=== PATIENT | male | born 1955 | race Caucasian/White ===

== ENCOUNTER → 2017-12-04 | Outpatient (CLI) | payer MEDICARE ==
[~2017-12-04] MED LIST: ASPIRIN 81M81 MG/TA2; ASPIRIN E.C. 8181 MG PO; CELEXA 20MG20 MG/TAB; FISH OIL1000 MG PO; LOPRESSOR 550 MG/TAB; NO HOME MEDICATIONS; TAMBOCOR 1100 MG/TAB; VITAMIN D1000 IU PO; XARELTO10 MG
[2017-12-04 09:14] LABS: COLLECTION METHOD CLEAN CATCH
[2017-12-04 09:18] LABS: BASO % 0.5 % (0.0-2.0); EOS # 0.2 (0.0-0.7); EOS % 2.5 % (0-4.0); GRAN # 6.4 (1.4-6.5); GRAN % 71.4 % (42.2-75.2); HEMATOCRIT 47.3 % (42.0-52.0); HEMOGLOBIN 16.1 g/dl (13.5-18.0); LYMPH # 1.6 (1.2-3.4); LYMPH % 17.6 % (20.0-51.0); MEAN CELL VOLUME 90 fl (80.0-100.0); MEAN CORPUSCULAR HEMOGLOBIN 31 pg (27.0-31.0); MEAN CORPUSCULAR HGB CONC 34 g/dl (33.0-37.0); MONO # 0.7 (0.1-0.6); MONO % 7.8 % (1.7-9.3); PLATELET COUNT 281 K/mm3 (130-400); RED BLOOD COUNT 5.28 M/mm3 (4.20-5.60); REDCELL DISTRIBUTION WIDTH-CV 12.5 % (11.5-14.5)
[2017-12-04 09:20] LABS: MUCOUS Present /lpf; PH 5 (5-8); SQUAMOUS EPITHELIAL None Seen /hpf; URINE APPEARANCE Clear; URINE BACTERIA None Seen /hpf; URINE BILIRUBIN Negative (NEGATIVE); URINE BLOOD Negative (NEGATIVE); URINE COLOR Yellow; URINE GLUCOSE 1+ (NEGATIVE); URINE KETONE Negative (NEGATIVE); URINE LEUKOCYTE ESTERASE Negative (NEGATIVE); URINE NITRATE Negative (NEGATIVE); URINE PROTEIN(semi-quant) Negative (NEGATIVE); URINE RBC 0-2 /hpf; URINE UROBILINOGEN Negative (NEGATIVE); URINE WBC 0-2 /hpf
[2017-12-04 09:37] LABS: ALBUMIN 4.5 gm/dL (3.5-5.0); BILIRUBIN,TOTAL 0.3 mg/dL (0.0-1.0); CALCIUM 9.2 mg/dL (8.4-10.2); CHOLESTEROL RISK RATIO 3.8; CREATININE, serum 0.77 mg/dL (0.66-1.25); POTASSIUM 4.2 mmol/L (3.4-5.0); TOTAL PROTEIN 7.7 gm/dL (6.4-8.2)
[2017-12-04 10:07] LABS: TSH w REFLEX 0.671 uIU/mL (0.465-4.680)
[2017-12-05] LABS: URINE MICROALBUMIN 3.3 mg/dL (0.0-1.7)
== END ==
LOC: COL.LAB 08:22
PROVIDERS: Registered Nurse
DX: R06.02 Shortness of breath (principal); I10 Essential (primary) hypertension

== ENCOUNTER → 2017-12-18 | Outpatient (CLI) | payer MEDICARE | LOC: COL.LAB 08:40 | DX: R73.9 Hyperglycemia, unspecified (principal) ==

== ENCOUNTER → 2017-12-22 | Outpatient (CLI) | payer MEDICARE | LOC: COL.PUL 07:52 | DX: R06.02 Shortness of breath (principal); F17.210 Nicotine dependence, cigarettes, uncomplicated ==

== ENCOUNTER 2018-01-22 10:16 | Emergency (ER) | payer MEDICARE ==
[~2018-01-22] VITALS: Ht 172.7 cm; Wt 71.4 kg
[2018-01-22 10:24] VITALS: TEMP 98.5
[2018-01-22] MEDS ORDERED: NORVASC 10MG10 MG PO (10:30)
[2018-01-22 12:20] LABS: BASO # 0.1 (0.0-0.2); BASO % 0.6 % (0.0-2.0); EOS # 0.1 (0.0-0.7); EOS % 0.6 % (0-4.0); GRAN # 7.4 (1.4-6.5); GRAN % 75.9 % (42.2-75.2); HEMATOCRIT 45.4 % (42.0-52.0); HEMOGLOBIN 15.9 g/dl (13.5-18.0); LYMPH # 1.5 (1.2-3.4); LYMPH % 14.9 % (20.0-51.0); MEAN CELL VOLUME 88 fl (80.0-100.0); MEAN CORPUSCULAR HEMOGLOBIN 31 pg (27.0-31.0); MEAN CORPUSCULAR HGB CONC 35 g/dl (33.0-37.0); MEAN PLATELET VOLUME 10.4 fl (7.4-10.4); MONO # 0.8 (0.1-0.6); MONO % 7.8 % (1.7-9.3); PLATELET COUNT 261 K/mm3 (130-400); RED BLOOD COUNT 5.19 M/mm3 (4.20-5.60); REDCELL DISTRIBUTION WIDTH-CV 12.4 % (11.5-14.5)
[2018-01-22 12:38] LABS: ALBUMIN 4.5 gm/dL (3.5-5.0); BILIRUBIN,TOTAL 0.8 mg/dL (0.0-1.0); C-REACTIVE PROTEIN 6.6 mg/dL (0.0-0.9); CALCIUM 9.3 mg/dL (8.4-10.2); CREATININE, serum 0.83 mg/dL (0.66-1.25); POTASSIUM 3.9 mmol/L (3.4-5.0); TOTAL PROTEIN 8.1 gm/dL (6.4-8.2)
[2018-01-22 12:47] LABS: COLLECTION METHOD CLEAN CATCH
[2018-01-22 12:55] LABS: MUCOUS Present /lpf; PH 5 (5-8); SQUAMOUS EPITHELIAL None Seen /hpf; URINE APPEARANCE Hazy; URINE BACTERIA None Seen /hpf; URINE BILIRUBIN Negative (NEGATIVE); URINE BLOOD 1+ (NEGATIVE); URINE COLOR Yellow; URINE GLUCOSE Negative (NEGATIVE); URINE KETONE 1+ (NEGATIVE); URINE LEUKOCYTE ESTERASE Negative (NEGATIVE); URINE NITRATE Negative (NEGATIVE); URINE PROTEIN(semi-quant) 1+ (NEGATIVE); URINE RBC 0-2 /hpf; URINE UROBILINOGEN Negative (NEGATIVE)
[2018-01-22] MEDS ORDERED: FLAGYL500 MG PO (14:08)
[2018-01-22] MEDS ORDERED: NORCO 325 MG-51 TAB PO (14:08)
[2018-01-22] MEDS ORDERED: LEVAQUIN 750MG750 M1 PO (14:08)
[2018-01-22] MEDS ORDERED: ZOFRAN ODT4 MG PO (14:08)
[2018-01-22] MEDS ORDERED: PERCOCET 325 MG1 TA2 PO (14:20)
[2018-01-22 14:21] VITALS: BP 152/78; PULSE 76
== END 2018-01-22 14:37 | disposition home or self-care (01) ==
LOC: COL.ER 10:16
PROVIDERS: Physician Assistant
DX: K57.32 Diverticulitis of large intestine without perforation or abscess without bleeding (principal); I10 Essential (primary) hypertension; F17.210 Nicotine dependence, cigarettes, uncomplicated; Z87.442 Personal history of urinary calculi; Z98.890 Other specified postprocedural states; Z79.82 Long term (current) use of aspirin
CPT/HCPCS: J2270; J2405; J7030; Q9967

== ENCOUNTER → 2018-02-06 | Outpatient (CLI) | payer MEDICARE ==
[~2018-02-06] MED LIST changes: +FLAGYL500 MG PO; +LEVAQUIN 750MG750 M1 PO; +NORCO 325 MG-51 TAB PO; +NORVASC 10MG10 MG PO; +PERCOCET 325 MG1 TA2 PO; +ZOFRAN ODT4 MG PO
== END ==
LOC: COL.RAD 10:28
DX: M16.0 Bilateral primary osteoarthritis of hip (principal); G89.29 Other chronic pain

== ENCOUNTER 2018-04-05 11:23 | Emergency (ER) | payer MEDICARE ==
[~2018-04-05] VITALS: Ht 172.7 cm; Wt 70.5 kg
[2018-04-05 11:29] VITALS: BP 168/85; TEMP 97
[2018-04-05] MEDS ORDERED: CELEBREX 200MG200 MG PO (11:40)
[2018-04-05] MEDS ORDERED: PERCOCET 325 MG1 TA2 PO (12:07)
[2018-04-05] MEDS ORDERED: PEN-VEE K500 MG PO (12:07)
[2018-04-05 12:33] VITALS: PULSE 88
== END 2018-04-05 12:34 | disposition home or self-care (01) ==
LOC: COL.ER 11:23
DX: K02.9 Dental caries, unspecified (principal); K04.7 Periapical abscess without sinus; I10 Essential (primary) hypertension; F17.210 Nicotine dependence, cigarettes, uncomplicated; Z79.82 Long term (current) use of aspirin

== ENCOUNTER 2018-05-21 09:35 | Emergency (ER) | payer MEDICARE ==
[~2018-05-21] VITALS: Ht 172.7 cm; Wt 67.0 kg
[~2018-05-21 09:35] MED LIST changes: +CELEBREX 200MG200 MG PO; +PEN-VEE K500 MG PO
[2018-05-21 09:39] VITALS: BP 134/76; TEMP 98.4
[2018-05-21] MEDS ORDERED: PEN-VEE K500 MG PO (10:17)
[2018-05-21] MEDS ORDERED: PERCOCET 325 MG1 TA2 PO (10:17)
[2018-05-21 10:33] VITALS: PULSE 79
== END 2018-05-21 10:33 | disposition home or self-care (01) ==
LOC: COL.ER 09:35
DX: K02.9 Dental caries, unspecified (principal); J44.9 Chronic obstructive pulmonary disease, unspecified; N40.0 Benign prostatic hyperplasia without lower urinary tract symptoms; F17.210 Nicotine dependence, cigarettes, uncomplicated; I10 Essential (primary) hypertension; Z87.442 Personal history of urinary calculi; Z79.82 Long term (current) use of aspirin

== ENCOUNTER → 2019-04-16 | Outpatient (CLI) | payer MEDICARE | LOC: COL.VAS 13:09 | DX: Z12.2 Encounter for screening for malignant neoplasm of respiratory organs (principal); I10 Essential (primary) hypertension; F17.210 Nicotine dependence, cigarettes, uncomplicated; R09.89 Other specified symptoms and signs involving the circulatory and respiratory systems; I74.3 Embolism and thrombosis of arteries of the lower extremities; R91.8 Other nonspecific abnormal finding of lung field ==

== ENCOUNTER → 2019-06-05 | Outpatient (CLI) | payer MEDICARE | LOC: COL.RAD 10:18 | DX: M54.2 Cervicalgia (principal); F17.210 Nicotine dependence, cigarettes, uncomplicated ==

== ENCOUNTER → 2019-06-07 | Outpatient (CLI) | payer MEDICARE ==
[2019-06-07 11:53] LABS: HEMATOCRIT 48.3 % (42.0-52.0); HEMOGLOBIN 16.7 g/dl (13.5-18.0); MEAN CELL VOLUME 87 fl (80.0-100.0); MEAN CORPUSCULAR HEMOGLOBIN 30 pg (27.0-31.0); MEAN CORPUSCULAR HGB CONC 35 g/dl (33.0-37.0); MEAN PLATELET VOLUME 10.1 fl (7.4-10.4); PLATELET COUNT 298 K/mm3 (130-400); RED BLOOD COUNT 5.57 M/mm3 (4.20-5.60); REDCELL DISTRIBUTION WIDTH-CV 12.8 % (11.5-14.5)
[2019-06-07 12:11] LABS: ALBUMIN 4.2 gm/dL (3.5-5.0); BILIRUBIN,TOTAL 0.9 mg/dL (0.0-1.0); CALCIUM 9.4 mg/dL (8.4-10.2); CREATININE, serum 0.99 (0.66-1.25); TOTAL PROTEIN 7.7 gm/dL (6.4-8.2)
== END ==
LOC: COL.LAB 11:10
PROVIDERS: Internal Medicine Interventional Cardiology
DX: I70.213 Atherosclerosis of native arteries of extremities with intermittent claudication, bilateral legs (principal)

== ENCOUNTER 2019-08-22 08:24 | Emergency (ER) | payer MEDICARE ==
[~2019-08-22] VITALS: Ht 172.7 cm; Wt 72.7 kg
[2019-08-22 08:32] VITALS: BP 168/77; TEMP 98.6
[2019-08-22] MEDS ORDERED: PLAVIX 75MG TAB75 MG PO (08:44)
[2019-08-22] MEDS ORDERED: PERCOCET 325 MG1 TA2 PO (08:49)
[2019-08-22] MEDS ORDERED: AMOXICILLIN 50500 MG PO (08:49)
[2019-08-22 09:19] VITALS: PULSE 71
== END 2019-08-22 09:20 | disposition home or self-care (01) ==
LOC: COL.ER 08:24
DX: K02.9 Dental caries, unspecified (principal); I10 Essential (primary) hypertension; Z87.891 Personal history of nicotine dependence; Z79.82 Long term (current) use of aspirin; Z79.02 Long term (current) use of antithrombotics/antiplatelets

== ENCOUNTER → 2020-09-03 | Outpatient (CLI) | payer MEDICARE ==
[~2020-09-03] MED LIST changes: +AMOXICILLIN 50500 MG PO; +PLAVIX 75MG TAB75 MG PO
[2020-09-03 11:12] LABS: ANION GAP 9 mmol/L (7-16); BLOOD UREA NITROGEN 18 mg/dL (9-20); CALCIUM 9.4 mg/dL (8.4-10.2); CARBON DIOXIDE 25 mmol/L (22-30); CHLORIDE 105 mmol/L (98-107); CREATININE, serum 0.91 (0.66-1.25); GLUCOSE 115 mg/dL (74-106); POTASSIUM 4.8 mmol/L (3.4-5.0); SODIUM 139 mmol/L (137-145)
[2020-09-03 11:14] LABS: C-REACTIVE PROTEIN < 0.5 mg/dL (0.0-0.9)
[2020-09-05 16:15] LABS: ANGIOTENSIN CONVERTING ENZYME 15 U/L (16 - 85)
== END ==
LOC: COL.LAB 10:23
PROVIDERS: Internal Medicine Pulmonary Disease
DX: R93.89 Abnormal findings on diagnostic imaging of other specified body structures (principal)

== ENCOUNTER → 2020-09-03 | Outpatient (CLI) | payer MEDICARE | LOC: COL.LAB 09:59 | DX: R93.89 Abnormal findings on diagnostic imaging of other specified body structures (principal) ==

== ENCOUNTER 2020-09-16 08:12 | Outpatient (RCR) | payer MEDICARE | END 2020-11-30 | disposition home or self-care (01) | LOC: WSST | DX: R13.10 Dysphagia, unspecified (principal); Z87.891 Personal history of nicotine dependence; J44.9 Chronic obstructive pulmonary disease, unspecified ==

== ENCOUNTER → 2020-09-21 | Outpatient (CLI) | payer MEDICARE | LOC: COL.RAD 07:54 | DX: R13.10 Dysphagia, unspecified (principal) ==

== ENCOUNTER → 2021-09-21 | Outpatient (CLI) | payer MEDICARE ==
[~2021-09-21] MED LIST changes: +CRESTOR20 MG PO; +PRINIVIL10 MG PO; +PROAIR HFA0.09 MG/AC IH; +TRELEGY ELLIPT1 EACH IH
== END ==
LOC: COL.VAS 14:12
DX: J44.9 Chronic obstructive pulmonary disease, unspecified (principal)

== ENCOUNTER → 2021-10-06 | Outpatient (CLI) | payer MEDICARE | LOC: COL.RAD 12:58 | DX: Z12.2 Encounter for screening for malignant neoplasm of respiratory organs (principal); J43.9 Emphysema, unspecified; Z87.891 Personal history of nicotine dependence ==

== ENCOUNTER 2021-10-27 06:52 | Outpatient (CLI) | payer MEDICARE ==
[2021-10-27] VITALS (19 sets, daily range): BP systolic 112–151; BP diastolic 69–88; PULSE 52–68; TEMP 98
[~2021-10-27] VITALS: Ht 172.7 cm; Wt 76.3 kg
--- NOTE | 2021-10-27 12:00 | NUR ---
Discharge instructions given to pt.Pt verbalizes understanding.INT removed,catheter tip intact.Dr. Cornejo in to see pt.Pt escorted out via wheelchair by this nurse.
== END 2021-10-27 13:21 ==
LOC: COL.RAD 06:52
DX: J93.9 Pneumothorax, unspecified (principal); R91.8 Other nonspecific abnormal finding of lung field
CPT/HCPCS: 32107

== ENCOUNTER 2021-12-14 10:53 | Day surgery (SDC) | payer MEDICARE ==
[~2021-12-14] VITALS: Ht 172.7 cm; Wt 73.6 kg
[2021-12-14 11:38] VITALS: BP 140/63; PULSE 75; TEMP 97.7
[2021-12-14 13:20] VITALS: BP 126/65; PULSE 55; TEMP 97.5
--- NOTE | 2021-12-14 13:20 | NUR ---
The patient arrived back to [place] [facility] from the operating room at this time. The patient appears alert and oriented and denies any pain or nausea at this time. Post operative vital signs were started at this time. The patient's dressing to his neck and right upper chest appear clean, dry and intact. The patient's is at his bedside. Call light is within reach. The patient requests to try some orange juice. Will continue to monitor the patient.
[2021-12-14 13:35] VITALS: BP 114/70; PULSE 53
--- NOTE | 2021-12-14 13:35 | NUR ---
The patient appears to be tolerating the juice well. Vital signs appear stable. The patient requests to ambulate to the bathroom and did some with the stand by assistance of one nurse and appeared to tolerate the activity well. The patient voided without difficulty and voices a desire to be discharge home.
[2021-12-14 13:50] VITALS: BP 123/71; PULSE 55
--- NOTE | 2021-12-14 13:50 | NUR ---
Discharge instructions were reviewed with the patient and his at this time. They both verbalized understanding and have no questions for the nurse at this time. The patient's IV to his right forearm was removed and a pressure dressing was applied to the site. The patient is dressed and ready to be escorted out.
--- NOTE | 2021-12-14 14:00 | NUR ---
The patient was escorted out via wheelchair to a private vehicle by DEANDRA Vásquez. The patient's belongings and discharge paperwork were sent with him. The patient's son is present to drive him home.
== END 2021-12-14 14:00 | disposition home or self-care (01) ==
LOC: SDCO 10:53
DX: C34.32 Malignant neoplasm of lower lobe, left bronchus or lung (principal); I10 Essential (primary) hypertension; J44.9 Chronic obstructive pulmonary disease, unspecified; I73.9 Peripheral vascular disease, unspecified; E78.5 Hyperlipidemia, unspecified; R06.02 Shortness of breath; M19.90 Unspecified osteoarthritis, unspecified site; Z79.891 Long term (current) use of opiate analgesic; Z79.82 Long term (current) use of aspirin; Z79.899 Other long term (current) drug therapy; Z79.02 Long term (current) use of antithrombotics/antiplatelets; Z87.891 Personal history of nicotine dependence; Z86.718 Personal history of other venous thrombosis and embolism; Z99.81 Dependence on supplemental oxygen
CPT/HCPCS: C1788; J0690; J1644; J2250; J2704; J7120

== ENCOUNTER 2021-12-24 18:38 | Inpatient (IN) | payer MEDICARE ==
[~2021-12-24] VITALS: Ht 172.7 cm; Wt 150.4 kg
[2021-12-24 19:41] LABS: HEMATOCRIT 37.5 % (42.0-52.0); HEMOGLOBIN 12.3 g/dl (13.5-18.0); MEAN CELL VOLUME 85 fl (80.0-100.0); MEAN CORPUSCULAR HEMOGLOBIN 28 pg (27-31); MEAN CORPUSCULAR HGB CONC 33 g/dl (33.0-37.0); MEAN PLATELET VOLUME 9.4 fl (7.4-10.4); PLATELET COUNT 431 K/mm3 (130-400); RED BLOOD COUNT 4.43 M/mm3 (4.20-5.60); REDCELL DISTRIBUTION WIDTH-CV 13.2 % (11.5-14.5)
[2021-12-24 19:56] LABS: ALBUMIN 2.8 gm/dL (3.4-4.8); BILIRUBIN,TOTAL 0.4 mg/dL (0.2-1.2); CALCIUM 9.2 mg/dL (8.4-10.2); CREATININE, serum 1.52 mg/dL (0.72-1.25); POTASSIUM 4.3 mmol/L (3.5-4.5); TOTAL PROTEIN 8.2 gm/dL (6.2-8.1)
[2021-12-24 20:02] LABS: BAND 5 % (0-10); LYMPHOCYTE 2 % (20.0-51.0); NEUTROPHILS 88 % (42.0-75.2)
[2021-12-24 21:43] LABS: COLLECTION METHOD CLEAN CATCH
[2021-12-24 21:51] LABS: MUCOUS Present (NOT PRESENT); PH 5 (5-8); SQUAMOUS EPITHELIAL 0-2 /hpf (0-10); URINE APPEARANCE Cloudy (CLEAR/HAZY); URINE BACTERIA None Seen /hpf (NONE SEEN); URINE BILIRUBIN Negative (NEGATIVE); URINE BLOOD 1+ (NEGATIVE); URINE COLOR Amber (YELLOW); URINE GLUCOSE Negative (NEGATIVE); URINE KETONE Negative (NEGATIVE); URINE LEUKOCYTE ESTERASE Negative (NEGATIVE); URINE NITRATE Negative (NEGATIVE); URINE PROTEIN(semi-quant) 2+ (NEGATIVE); URINE UROBILINOGEN Negative (NEGATIVE)
[2021-12-24] MEDS ORDERED: VALIUM 5MG T5 MG/TAB PO (21:51)
[2021-12-24] MEDS ORDERED: PERCOCET 325 MG1 TA2 PO (21:51)
[2021-12-24] MEDS ORDERED: FLOMAX 0.40.4 MG/CAP PO (21:52)
[2021-12-24] MEDS ORDERED: TRELEGY ELLIPT1 EACH IH (21:52)
[2021-12-24] MEDS ORDERED: PLAVIX 75MG TAB75 MG PO (21:52)
[2021-12-24] MEDS ORDERED: CRESTOR20 MG PO (21:53)
[2021-12-24] MEDS ORDERED: NORVASC 10MG10 MG PO (21:53)
[2021-12-24] MEDS ORDERED: ASPIRIN 81M81 MG/TA2 PO (21:53)
[2021-12-24] MEDS ORDERED: PROAIR HFA0.09 MG/AC IH (21:53)
[2021-12-24] MEDS ORDERED: PRINIVIL10 MG PO (21:54)
[2021-12-24 23:13] VITALS: BP 127/57; PULSE 92; TEMP 100
--- NOTE | 2021-12-25 01:11 | NUR ---
PATIENT UP TO FLOOR. ALERT AND ORIENTED. MED RX COMPLETED. ASSESSMENTS COMPLETED. IV TO L AC PATENT WITH IVF INFUSING AND INTERMITTENT ABX. PORT TO R CHEST. C/O GENERALIZED BODY ACHES AND PRN PERCOCET GIVEN. 2 L O2 INFUSING VIA NC. RESPIRATORY PANEL COMPLETED AND SENT TO LAB. PATIENT RESTING IN BED NOW AND REQUESTS TO NOT BE BOTHERED VERY MUCH. CALLED AND WAS UPDATED. NAME AND NUMBER IS IN CHART.
[2021-12-25 04:17] VITALS: BP 100/50; PULSE 66; TEMP 98
[2021-12-25 05:41] LABS: HEMOGLOBIN 11.4 g/dl (13.5-18.0); MEAN CELL VOLUME 85 fl (80.0-100.0); MEAN CORPUSCULAR HEMOGLOBIN 29 pg (27-31); MEAN CORPUSCULAR HGB CONC 34 g/dl (33.0-37.0); MEAN PLATELET VOLUME 9.5 fl (7.4-10.4); PLATELET COUNT 361 K/mm3 (130-400); RED BLOOD COUNT 3.98 M/mm3 (4.20-5.60); REDCELL DISTRIBUTION WIDTH-CV 13.3 % (11.5-14.5)
[2021-12-25 05:57] LABS: BAND 7 % (0-10); HYPOCHROMIA 3+; LYMPHOCYTE 2 % (20.0-51.0); NEUTROPHILS 88 % (42.0-75.2); PLATELET ESTIMATE NORMAL (NORMAL)
--- NOTE | 2021-12-25 06:10 | NUR ---
66 yo male admitted for further care and management of sepsis likely secondary to possible pneumonia. ht 68 inches wt 71 kg SCr 1.52 with estimated CrCl ~40 ml/min half life 18.7 hours Plan: Will give an initial loading dose of vancomycin 1500 mg x1 (21.1 mg/kg); followed by a maintenance regimen of vancomycin 1000 mg q18h to target a goal trough of 15-20 mcg/ml. Will follow patient's renal function, micro data, and vancomycin levels as indicated to assess for any necessary changes to regimen. Thank you for this dosing consult.
[2021-12-25 07:19] VITALS: BP 100/61; PULSE 63; TEMP 97.7
--- NOTE | 2021-12-25 07:30 | NUR ---
CALLED UP ASKING ABOUT PATIENT'S NIGHT, PATIENT STATUS UPDATE GIVEN. EXPRESSED SOME CONCERN REGUARDING THE VISITOR POLICY THE PATIENT HAS A BROTHER AND BEST FRIEND SINCE [place]. NURSING EDUCATED ABOUT COVID AND THE IMPORTANCE OF THE VISITOR POLICY. THEN ALSO EXPRESSED CONCERN ABOUT PHONE CALLS. SHE WENT ON TO SAY THEY CAN ONLY AFFORD ONE CELL PHONE AND SHE HAS IT. APPARENTLY THE PATIENT'S BROTHER TRIED TO CALL IN THE EARLY HOURS OF THE MORNING ON RN CHILD AND HAD DIFFICULTY GETTING TRANSFERED TO THE CORRECT ROOM THE PATIENT HAS MOVED FROM ICU TO SURGICAL. ONCE TRANSFERED, RN CHILD PATIENT WAS SO TIRED AND SLEPT SOUNDLY ALL NIGHT. PATIENT DID NOT HEAR THE PHONE RING. BECAME INCREASINGLY UPSET SHE TOLD THIS STORY AND SAID "HE IS DYING, HE HAS THE RIGHT TO PHONE CALLS, DOES HE NOT?!" BEFORE NURSING COULD ANSWER THE STARTING RAISING HER VOICE AND BLAMING NURSING. I WAS ABLE TO CALM HER DOWN AND REMIND HER NURSING HAS NO CONTROL OVER THE VISITOR POLICY AND EXPRESSED THE IMPORTANCE OF SLEEP HOWEVER, WE COMPLETLY SUPPORT ANY AND ALL COMMUNICATION THAT THE PATIENT WANTS TO HAVE DURING HIS STAY. WAS GIVEN THE DIRECT PHONE NUMBER TO THE PATIENT'S ROOM. NURSING MADE SURE THE PHONE WAS WITHIN REACH. THEN APPOLOGIZED AND THANKED NURSING FOR ALL WE DO. 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 REPORTS SHE WILL BE IN LATER TODAY.
--- NOTE | 2021-12-25 08:00 | NUR ---
PATIENT IS DROWSY, ORIENTED X4 AND FOUND TO BE VERY DIAPHORTIC IN HIS SLEEP. AFEBRILE. VSS ON TELE. RIGHT CHEST PORT TEGADERM COMING OFF DUE TO SWEAT, REPLACED DRESSING AND FLUSHED. IV FLUIDS INFUSING INTO LEFT AC IV. NO C/O PAIN OR NAUSEA. NOTED ELEVATED WBC OF 26.4, BC PENDING. PATIENT IS ON IV SOLU-MEDROL WELL VANCO & ZOSYN. NOTED OCCATIONAL DRY COUGH, NON-PRODUCTIVE. A&P LUNG EMERSON DEMINISHED. 02 @ 2L PER NC TO KEEP SATS IN LOW 90'S. NOTED SOME DYSNPEA ON EXERSION. PATIENT HAS A HX OF STAGE III LUNG CANCER WITH METS TO LYMPH & TRACH AND HAS BEEN SEEING . PATIENT WAS SUPPOSED TO START CHEMO THIS WEEK BUT WAS HOSPITALIZED WITH PNA. PATIENT IS A SMALL STATURE MALE WHO REPORTS HE IS LOOSING WEIGHT AND HAS DECREASED APPETITE. NO C/O N/V. HE IS PALE, DIAPHORETIC AND WEAK. HEAD TO TOE ASSESSMENT COMPLETE. DNR STATUS. PATIENT SHOWN HOW TO ORDER BREAKFAST. NO OTHER NEEDS. CALL LIGHT IN REACH.
--- NOTE | 2021-12-25 10:58 | NUR ---
SW met with patient to complete intake. Patient states that he lives with his Crystal [phone] in [facility]. Patient provides that he does not utilize any DME and is independent with ADL's. Patient states that a nurse comes to his home on Monday', but was unsure of what agency. SW will follow up with or nurse to confirm. Patient states that his PCP is Dr. Croft, and pharmacy is [facility] patient states that his has been appointed as his DPOA/HC. Patient states his plan is to return to his home up on [place] and has no concerns or questions to follow. SW will continue to follow. DC plan: home
[2021-12-25 12:00] VITALS: BP 109/52; PULSE 89; TEMP 97.3
--- NOTE | 2021-12-25 12:40 | NUR ---
AT BEDSIDE. PULM CONSULT ORDERED AND CALLED BY . WHO WAS ORIGIONALLY HESITANT TO SEE AGREED TO SEE HIM.
--- NOTE | 2021-12-25 13:08 | NUR ---
Trimming Cutter offered prayer and support with patient.
[2021-12-25 15:59] VITALS: BP 112/53; PULSE 85; TEMP 97.5
--- NOTE | 2021-12-25 16:00 | NUR ---
REPORTED OFF TO DEANDRA BAXTER
--- NOTE | 2021-12-25 16:15 | NUR ---
ASSUMING CARE FOR REST OF SHIFT. REPORT RECEIVED FROM MAI CASTILLO CURRENTLY SLEEPING, REQUESTED TO ALLOW TO SLEEP
--- NOTE | 2021-12-25 17:11 | NUR ---
FOCUSED ASSESSMENT COMPLETED ALONGSIDE 1600 MED PASS. DISCUSSED WITH NICANOR DEE TO GIVE SOLU-MEDROL WITH ELEVATED WBC PER DR. MORA'S PLAN OF CARE. LUNGS DIMINISHED/CLEAR IN ALL LOBES. S1,S2 SOUNDS AUSCULTATED. PT PULSES 2+ IN ALL EXTREMITIES, CAP REFILL <3S. PT ALERT AND ORIENTED, REQUESTING TO REST. CALL LIGHT WITHIN REACH.
[2021-12-25 20:05] VITALS: BP 126/57; PULSE 91; TEMP 97.8
[2021-12-26 00:08] VITALS: BP 120/47; PULSE 76; TEMP 98.3
--- NOTE | 2021-12-26 04:47 | NUR ---
PT HAS RESTED QUIETLY ALL NIGHT. HE HAS DENIED PAIN. NO DYSPNEA AT REST. NO ADVENTITIOUS LUNG SOUNDS AUSCULTATED.
[2021-12-26 05:29] VITALS: BP 102/40; PULSE 72; TEMP 98.3
[2021-12-26 06:32] LABS: HEMOGLOBIN 10.4 g/dl (13.5-18.0); MEAN CELL VOLUME 85 fl (80.0-100.0); MEAN CORPUSCULAR HEMOGLOBIN 28 pg (27-31); MEAN CORPUSCULAR HGB CONC 33 g/dl (33.0-37.0); MEAN PLATELET VOLUME 9.7 fl (7.4-10.4); PLATELET COUNT 410 K/mm3 (130-400); RED BLOOD COUNT 3.72 M/mm3 (4.20-5.60); REDCELL DISTRIBUTION WIDTH-CV 13.3 % (11.5-14.5)
[2021-12-26 06:46] LABS: HEMATOCRIT 31.6 % (42.0-52.0)
[2021-12-26 06:47] LABS: C-REACTIVE PROTEIN 21.18 mg/dL (0.00-0.50); CALCIUM 8.5 mg/dL (8.4-10.2); CREATININE, serum 0.77 mg/dL (0.72-1.25); MAGNESIUM 2.2 mg/dL (1.6-2.6); POTASSIUM 3.8 mmol/L (3.5-4.5)
[2021-12-26 07:51] VITALS: BP 118/62; PULSE 80; TEMP 97.7
--- NOTE | 2021-12-26 08:00 | NUR ---
PATIENT IS ORIENTED X4. VSS ON TELE. RIGHT CHEST PORT NOTED ECCAMOSIS AROUND SITE, FLUSHES EASILY WITH GOOD RETURN. TEGADERM COMING OFF, REPLACED DRESSING. IV FLUIDS INFUSING INTO LEFT AC IV. NO C/O PAIN OR NAUSEA. NOTED ELEVATED WBC OF 27.00, BC PENDING, HOSPITALIST AWARE. PATIENT IS ON IV SOLU-MEDROL WELL VANCO & ZOSYN. NOTED OCCATIONAL DRY COUGH, NON-PRODUCTIVE. PENDING SPUTUM. A&P LUNG EMERSON DEMINISHED IN BASES. 02 @ 2L PER NC TO KEEP SATS IN LOW 90'S. NOTED SOME DYSNPEA ON EXERSION. PATIENT HAS A HX OF STAGE III LUNG CANCER WITH METS TO LYMPH & TRACH AND HAS BEEN SEEING . PATIENT WAS SUPPOSED TO START CHEMO THIS WEEK BUT WAS HOSPITALIZED WITH PNA. PATIENT IS A SMALL STATURE MALE WHO REPORTS HE IS LOOSING WEIGHT AND HAS DECREASED APPETITE. NO C/O N/V. HE IS PALE, WEAK, AND REPORTS DECREASED APPETITE. HEAD TO TOE ASSESSMENT COMPLETE. DNR STATUS. PATIENT ORDERED BREAKFAST. AT BEDSIDE WAITING FOR TO ROUND. ON THE PHONE TALKING WITH "[facility]" NURSE. NURSE KINDLY ASKED FOR UPDATE, GIVEN. NO OTHER NEEDS. CALL LIGHT IN REACH.
--- NOTE | 2021-12-26 08:11 | NUR ---
Vancomycin Follow-up Pharmacy Note Current regimen: Vancomycin 1 gm IV q18h Adjustments: Will increase Vancomycin to 1.25 gm IV q12h with improvement in renal function (SCr 0.77, CrCl~76, GFR 101). Pharmacy will continue to closely monitor and check a Vancomcyin trough on 12/28/21.
[2021-12-26 09:14] LABS: HYPOCHROMIA 1+; LYMPHOCYTE 5 % (20.0-51.0); NEUTROPHILS 94 % (42.0-75.2); PLATELET ESTIMATE INCREASED (NORMAL)
[2021-12-26 09:15] LABS: TOXIC GRANULATION PRESENT
[2021-12-26 12:20] VITALS: BP 131/67; PULSE 82; TEMP 97.3
[2021-12-26 16:06] VITALS: BP 131/56; PULSE 92; TEMP 98
--- NOTE | 2021-12-26 17:10 | NUR ---
PATIENT CALLED OUT REQUESTING A PAIN PILL, GIVEN. PATIENT ALSO REPORTED HIS IV SITE IS LEAKING A LITTLE BLOOD. NOTED BLOOD UNDER TEGADERM. IV SITE FLUSHES WELL, NO REDDNESS OR TENDERNESS. APPLIED NEW DRESSING, IV ABX INFUSING, WILL MONITOR.
--- NOTE | 2021-12-26 17:30 | NUR ---
PATIENT CALLED OUT AND REPORTED IV SITE WAS LEAKING AGAIN. DC'D LEFT AC IV, CATH TIP INTACT AND COVERED WITH GAUZE & COBAN. STARTED 22 GAUGE IV ON FIRST ATTEMPT INTO RIGHT FORARM. IV FLUIDS INFUSING. AT BEDSIDE.
[2021-12-26 19:49] VITALS: BP 172/83; PULSE 105; TEMP 97.3
--- NOTE | 2021-12-26 22:11 | NUR ---
PT'S CALLED UPSET THAT PT IS A DNR. HOSPITALIST PRENATAL NURSE NOTIFIED. HOSPITALIST PRENATAL NURSE SPOKE WITH PT. DNR ORDER WAS D.C.'D.
--- NOTE | 2021-12-27 00:16 | NUR ---
PT REQUESTED HE NOT BE BOTHERED FOR VITAL SIGNS AT MIDNIGHT.
[2021-12-27 00:37] VITALS: BP 156/76; PULSE 74; TEMP 98.4
[2021-12-27 03:43] VITALS: BP 144/69; PULSE 71; TEMP 98.5
[2021-12-27 06:27] LABS: HEMOGLOBIN 10.2 g/dl (13.5-18.0); MEAN CELL VOLUME 89 fl (80.0-100.0); MEAN CORPUSCULAR HEMOGLOBIN 29 pg (27-31); MEAN CORPUSCULAR HGB CONC 32 g/dl (33.0-37.0); MEAN PLATELET VOLUME 9.7 fl (7.4-10.4); PLATELET COUNT 440 K/mm3 (130-400); RED BLOOD COUNT 3.58 M/mm3 (4.20-5.60); REDCELL DISTRIBUTION WIDTH-CV 13.8 % (11.5-14.5)
[2021-12-27 06:37] LABS: HEMATOCRIT 31.9 % (42.0-52.0)
[2021-12-27 06:47] LABS: CALCIUM 8.2 mg/dL (8.4-10.2); CREATININE, serum 0.72 mg/dL (0.72-1.25); MAGNESIUM 2.1 mg/dL (1.6-2.6)
[2021-12-27 07:43] VITALS: BP 138/63; PULSE 74; TEMP 98.2
[2021-12-27 08:00] LABS: BAND 2 % (0-10); LYMPHOCYTE 4 % (20.0-51.0); NEUTROPHILS 91 % (42.0-75.2)
[2021-12-27 08:01] LABS: PLATELET ESTIMATE INCREASED (NORMAL)
--- NOTE | 2021-12-27 09:26 | NUR ---
Report received this morning. Morning medications have been adminstered and a full body assessment was completed. Vital signs WNL. Patient rates pain as 6/10 and a PRN percocet was given. enters the patients room during this nurses assessment. She is upset with [facility] who is in charge of the patients hospice care. Patients states that [facility] either will not or do not have admission paperwork. Patients son was able to retrieve the paperwork this morning. is also upset about the phone call during the night in regards to patients DNR status. The preceptor, Nery Siegel, showed the patient and his that the DNR status had been changed to a full code in the computer. Patients is also upset about some of the care and physicians involved with her husbands care. We reassured her that the physicians will be rounding on the floor soon and that she can address these concerns with them. Patient denies any other needs at this time. Call light within reach.
[2021-12-27 11:48] VITALS: BP 165/72; PULSE 88; TEMP 97.7
--- NOTE | 2021-12-27 13:18 | NUR ---
SW asked the PA for PT/OT to be ordered.
--- NOTE | 2021-12-27 14:18 | NUR ---
Patient eating lunch, tolerating oral intake well. Rates pain as 7/10. PRN percocet given. No other complaints at this time. Call light within reach.
[2021-12-27 15:45] VITALS: BP 135/57; PULSE 84; TEMP 98.2
--- NOTE | 2021-12-27 19:10 | NUR ---
Bedside shift report received, assumed care for manager shift. Assessment complete. A&Ox4. Denies pain/naussea/shortness of breath. VS stable. Tele reporting SR. O2@2.5L/NC. Right forearm IV flushes without difficulty. SCDs ordered but patient states he prefers them off for a while to get a break. Plan of care discussed for this shift to include meds/pain control/calling for questions/concerns. Verbalizes understanding/denies needs. Call light in reach. Will monitor.
[2021-12-27 19:57] VITALS: BP 149/69; PULSE 78; TEMP 97.8
--- NOTE | 2021-12-27 20:45 | NUR ---
Percocet one tab given at this time for back pain rated 6/10 on pain scale described as throbbing. Will monitor.
[2021-12-28 00:04] VITALS: BP 145/63; PULSE 71; TEMP 97.9
--- NOTE | 2021-12-28 00:45 | NUR ---
Resting in bed eyes closed. No s/s of pain noted.
[2021-12-28 04:08] VITALS: BP 150/66; PULSE 71; TEMP 97.9
--- NOTE | 2021-12-28 04:54 | NUR ---
Rested off and on this shift. Denies nausea/shortness of breath. VS remained stable. AM labs drawn from port without difficulty. INT to right forearm flushes without difficulty. O2@2L/NC. Received percocet x1 for pain. Denies current needs. Call light in reach. Will monitor.
[2021-12-28 06:26] LABS: BASO % 0.2 % (0.0-2.0); GRAN # 14.6 K/mm3 (1.4-6.5); HEMOGLOBIN 10.9 g/dl (13.5-18.0); LYMPH # 1.3 K/mm3 (1.2-3.4); LYMPH % 7.8 % (20.0-51.0); MEAN CELL VOLUME 86 fl (80.0-100.0); MEAN CORPUSCULAR HEMOGLOBIN 28 pg (27-31); MEAN CORPUSCULAR HGB CONC 33 g/dl (33.0-37.0); MEAN PLATELET VOLUME 9.6 fl (7.4-10.4); MONO % 5.6 % (1.7-9.3); PLATELET COUNT 459 K/mm3 (130-400); RED BLOOD COUNT 3.84 M/mm3 (4.20-5.60); REDCELL DISTRIBUTION WIDTH-CV 13.9 % (11.5-14.5)
[2021-12-28 06:32] LABS: HEMATOCRIT 33.1 % (42.0-52.0)
[2021-12-28 06:44] LABS: CALCIUM 8.4 mg/dL (8.4-10.2); CREATININE, serum 0.71 mg/dL (0.72-1.25); MAGNESIUM 1.9 mg/dL (1.6-2.6); POTASSIUM 3.3 mmol/L (3.5-4.5)
[2021-12-28 07:46] VITALS: BP 162/84; PULSE 114; TEMP 97.7
--- NOTE | 2021-12-28 09:37 | NUR ---
Patient report received. Morning medication and full body assessment completed. Vital signs WNL and he is A&Ox4. Spouse at the bedside. Patient had complaints this morning that he kept being woken up throught the night. Patient ambulated to the bathroom with a steady gait but had labored breathing after walking. Patient complains of pain /10, PRN percocet adminstered. Call light within reach.
--- NOTE | 2021-12-28 10:33 | NUR ---
ODILIA met with the patient and his , Crystal, to follow up and review discharge plan. Crystal reports that the plan is still for the patient to return back home with her upon discharge. She states that the patient has palliative custodial health from [facility] and they plan on resuming services upon discharge. Crystal provided ODILIA with a copy of the patient's DPOA-HC and Living Will. ODILIA placed the copies in the patient's chart. The patient's DPOA-HC is his . The alternate is their daughter, Ambika Haynes (ph#[phone]). ODILIA contacted and updated Shara at [facility]. She confirms the patient is on their palliative custodial health program. She asks that we keep them updated on when the patient returns home. SW to continue follow. *Discharge plan: home with and palliative custodial health*
[2021-12-28 11:28] VITALS: BP 119/59; PULSE 74; TEMP 97.8
--- NOTE | 2021-12-28 18:02 | NUR ---
Patient laying in bed, spouse at the bedside. Patient has been resting in bed a majority of the day. Has been taking oral intake well. Patient is A&Ox4 and has complained of pain throughout the day. PRN percocet order was changed to Q4H from Q6H . Vital signs have remained stable through the shift. K+ was low, 3.3, today and oral potassium was given. Patient has no other complaints at this time. Call light within reach. Will give nightshift report.
--- NOTE | 2021-12-28 19:30 | NUR ---
Bedside shift report received, assumed care for network communications engineer. Assessment complete. A&Ox4. Denies pain/nausea. Short of breath with activity. VS remain stable. Port to right subclavian flushes well-good blood return. INT to right forearm flushes without difficulty. Tele reports SR. O2@2.5L/NC. SCDs bilat. Plan of care discussed for this shift to include medications/pain control/calling for questions/concerns. Verbalizes understanding/denies needs. Call light in reach. Will monitor.
[2021-12-28 20:15] VITALS: BP 128/66; PULSE 81; TEMP 97.8
--- NOTE | 2021-12-29 00:30 | NUR ---
Patient refused VS.
--- NOTE | 2021-12-29 01:26 | NUR ---
came to nurses station-staff was unaware she stayed over night as she was balled up in the recliner under blankets-stating they decided late last night they wanted to go on hospice and that the patient doesnt want to be disturbed. Spoke with LETICIA Garinca-hospitalist because per dr gee patient is currently a full code and patient is refusing care. LETICIA Garnica will speak with patient and .
--- NOTE | 2021-12-29 04:48 | NUR ---
AM labs drawn from port without difficulty. Percocet given for back pain rated 8/10 on pain scale described as constant ache. Denies current needs. Call light in reach. Will monitor.
[2021-12-29 04:56] VITALS: BP 132/72; PULSE 76; TEMP 97.4
[2021-12-29 06:25] LABS: BASO % 0.1 % (0.0-2.0); EOS % 0.1 % (0.0-4.0); GRAN # 15.6 K/mm3 (1.4-6.5); GRAN % 84.2 % (42.2-75.2); HEMOGLOBIN 11.5 g/dl (13.5-18.0); LYMPH # 1.5 K/mm3 (1.2-3.4); LYMPH % 8.2 % (20.0-51.0); MEAN CELL VOLUME 85 fl (80.0-100.0); MEAN CORPUSCULAR HEMOGLOBIN 28 pg (27-31); MEAN CORPUSCULAR HGB CONC 32 g/dl (33.0-37.0); MEAN PLATELET VOLUME 9.6 fl (7.4-10.4); MONO # 1.1 K/mm3 (0.1-0.6); MONO % 6.2 % (1.7-9.3); PLATELET COUNT 433 K/mm3 (130-400); RED BLOOD COUNT 4.18 M/mm3 (4.20-5.60); REDCELL DISTRIBUTION WIDTH-CV 13.7 % (11.5-14.5)
[2021-12-29 06:35] LABS: HEMATOCRIT 35.5 % (42.0-52.0)
[2021-12-29 06:45] LABS: C-REACTIVE PROTEIN 14.35 mg/dL (0.00-0.50); CALCIUM 8.5 mg/dL (8.4-10.2); CREATININE, serum 0.78 mg/dL (0.72-1.25); MAGNESIUM 2.1 mg/dL (1.6-2.6); POTASSIUM 3.8 mmol/L (3.5-4.5)
[2021-12-29 08:00] VITALS: BP 134/57; PULSE 83; TEMP 97.6
[2021-12-29] MEDS ORDERED: CEFTIN500 MG PO (09:01)
[2021-12-29] MEDS ORDERED: MONODOX100 PO (09:02)
[2021-12-29] MEDS ORDERED: PREDNISONE20 MG PO (09:10)
--- NOTE | 2021-12-29 09:24 | NUR ---
Pt assessment complete. Pt is sitting up in bed upon entry, he is A/O x4. His breathing is even and unlabored on 2.5L o2 via NC. Pt denies SOB at rest, but has some with exertion. Denies any pain. No N/T. Discussed POC with patient. No further needs at this time. Call light within reach.
--- NOTE | 2021-12-29 11:05 | NUR ---
Discharge paperwork and instructions reviewed with patient and his . All questions answered at this time. IV to RFA dc'd catheter tip intact. PAC deaccessed.
--- NOTE | 2021-12-29 11:21 | NUR ---
The patient discharged back home with his today, 12/29, and will resume Palliative Longterm Health through [facility]. SW notified Shara at [facility] of the patient's discharge. No additional needs at this time.
--- NOTE | 2021-12-29 11:30 | NUR ---
Pt wheeled out of facility by staff at this time.
== END 2021-12-29 11:31 | disposition home or self-care (01) | DRG 871 ==
LOC: COL.ER 18:38 → SURG 21:19
PROVIDERS: Internal Medicine; Nurse Practitioner Family; Student in an Organized Health Care Education/Training Program
DX: A41.9 Sepsis, unspecified organism (principal); J18.8 Other pneumonia, unspecified organism; J96.21 Acute and chronic respiratory failure with hypoxia; C34.90 Malignant neoplasm of unspecified part of unspecified bronchus or lung; C78.39 Secondary malignant neoplasm of other respiratory organs; C77.9 Secondary and unspecified malignant neoplasm of lymph node, unspecified; J44.0 Chronic obstructive pulmonary disease with (acute) lower respiratory infection; J44.1 Chronic obstructive pulmonary disease with (acute) exacerbation; E87.1 Hypo-osmolality and hyponatremia; E87.2 Acidosis; N17.9 Acute kidney failure, unspecified; E44.0 Moderate protein-calorie malnutrition; Z66 Do not resuscitate; I73.9 Peripheral vascular disease, unspecified; I10 Essential (primary) hypertension; E78.5 Hyperlipidemia, unspecified; D64.9 Anemia, unspecified; N40.0 Benign prostatic hyperplasia without lower urinary tract symptoms; Z20.822 Contact with and (suspected) exposure to COVID-19; Z87.442 Personal history of urinary calculi; Z87.891 Personal history of nicotine dependence; Z68.24 Body mass index [BMI] 24.0-24.9, adult; Z23 Encounter for immunization
CPT/HCPCS: 99223-AI; 99232-AI; 99233-AI; 99239; J0456; J1644; J2543; J2920; J2930; J3370; J7030; J7050; J7120; J7512; Q9967

== ENCOUNTER → 2022-07-21 | Outpatient (CLI) | payer MEDICARE ==
[~2022-07-21] MED LIST changes: +ASPIRIN 81M81 MG/TA2 PO; +CEFTIN500 MG PO; +FLOMAX 0.40.4 MG/CAP PO; +MONODOX100 PO; +PREDNISONE20 MG PO; +VALIUM 5MG T5 MG/TAB PO
== END ==
LOC: COL.RAD 13:58
DX: C34.90 Malignant neoplasm of unspecified part of unspecified bronchus or lung (principal)
CPT/HCPCS: Q9967